=== PATIENT | female | born 1955 | race Caucasian/White ===

== ENCOUNTER 2017-12-20 01:43 | Emergency (ER) | payer SELFPAY ==
[~2017-12-20] VITALS: Ht 162.6 cm; Wt 90.0 kg
[2017-12-20] MEDS ORDERED: KETOROLAC 60MG/2ML VIAL IM ONE (04:45)
[2017-12-20 05:40] VITALS: BP 136/75
== END 2017-12-20 05:49 | disposition home or self-care (01) ==
LOC: ER 01:43
DX: M79.661 Pain in right lower leg (principal); Z90.710 Acquired absence of both cervix and uterus
CPT/HCPCS: 93971; 96372; 99284; J1885; Z7610